=== PATIENT | male | born 1965 | race Caucasian/White ===

== ENCOUNTER 2021-06-07 07:50 | Inpatient (IN) | payer BC ==
[~2021-06-07] VITALS: Ht 195.6 cm; Wt 149.7 kg
[~2021-06-07 07:50] MED LIST: CARISOPRODOL 3350 MG PO; IBUPROFEN 800800 M1 PO; LOMOTIL TABLET1 EACH PO; NOHOMEMEDICATIONS; NORCO 5-325 TA1 EACH PO; SENOKOT-S1 TA1 PO
[2021-06-07 08:00] VITALS: BP 152/85
[2021-06-07 08:11] LABS: URINE BILIRUBIN NEGATIVE (Negative); URINE BLOOD NEGATIVE (Negative); URINE CLARITY CLEAR; URINE COLOR YELLOW; URINE GLUCOSE-RANDOM* NEGATIVE (Negative); URINE KETONES NEGATIVE (Negative); URINE LEUKOCYTES-REFLEX NEGATIVE (Negative); URINE NITRITE-REFLEX NEGATIVE (Negative); URINE PROTEIN (DIPSTICK) NEGATIVE (Negative)
[2021-06-07 08:25] LABS: HEMATOCRIT 43.3 % (42.0-52.0); HEMOGLOBIN 14.6 gm/dL (14.0-18.0); MCH 30.7 pg (26.0-34.0); MCHC 33.7 g/dL (28.0-37.0); MCV 90.9 fL (80.0-100.0); PLATELET COUNT 149 thou/uL (150-400); RBC 4.76 mil/uL (4.50-6.00); RDW 14.7 % (10.5-14.5); WBC 11.2 thou/uL (4.0-11.0)
[2021-06-07 08:29] LABS: CALCIUM 8.9 mg/dL (8.5-10.1); CREATININE 0.8 mg/dL (0.7-1.3)
[2021-06-07 08:40] LABS: ALBUMIN 3.7 g/dL (3.4-5.0); MAGNESIUM 2.1 mg/dL (1.8-2.4); TOTAL BILIRUBIN 2.1 mg/dL (0.2-1.0); TOTAL PROTEIN 7.9 g/dL (6.4-8.2)
[2021-06-07 08:47] LABS: POTASSIUM 4.5 mmol/L (3.5-5.1)
[2021-06-07 10:15] LABS: ABSOLUTE NEUTROPHILS 8.7 thou/uL (1.4-8.2); ATYPICAL LYMPHS 1 %
--- NOTE | 2021-06-07 14:20 | EKG ---
[place] [address] [address] [place] [address] ELECTROCARDIOGRAM REPORT Name: ISRAEL PAL Room #: 150-3 ADM IN M.R.#: [id number] Admission: 06/07/21 Attend Phys: Bhupinder Barba MD Discharge: Date of : 63 Report #: [id number] [facility] ED Test Date: 2021-06-07 Test Time: 08:19:01 Pat Name: ISRAEL PAL Department: Room: 150 Gender: M Vessel Captain: EDUARDO : 1965 Requested By: Wes Hurtado Order Number: [id number] MD: Sundar Ambriz Measurements Intervals [place] Rate: 74 P: 17 [place]: 149 QRS: 14 QRSD: 130 T: 22 QT: 393 QTc: 436 Interpretive Statements Sinus rhythm Right bundle branch block Compared to ECG 04/22/1991 09:12:00 Right bundle-branch block now present Sinus bradycardia no longer present Left ventricular hypertrophy no longer present Electronically Signed On 06-07-2021 14:20:15 CAR ESCORT by Sundar Ambriz [email or web address] <ELECTRONICALLY SIGNED> By: Sundar Ambriz MD, [facility] 06/07/21 1420 8 8 Sundar Ambriz MD, FAC /EPI
[2021-06-07 18:15] VITALS: BP 132/74
[2021-06-07 18:30] VITALS: BP 130/58
[2021-06-07 18:45] VITALS: BP 135/51
--- NOTE | 2021-06-07 19:30 | NUR ---
1600 PT ADMIT TO FLOOR FROM OR. PATIENT IS STABLE CONDITION; LUNGS CLEAR/DIM; HYPOACTIVE BS, 5 LAP SITES INTACT, QUINTON, NO DRAINAGE SEEN, JAYANT DRAIN IN PLACE TO RIGHT ABD WITH MINIMAL BLOODY DRAINAGE IN BULB. SCDS AND O2 IN PLACE, PT DENIES PAIN AT THIS TIME. PT IS AWARE THAT HE IS TO STAY NPO, NOTHING TO EAT OR DRINK UNTIL THE PROVIDER SEES HIM IN THE MORNING, PT IS NOT HAPPY ABOUT IT, BUT UNDERSTANDS. GREEN SWABS AND MOUTH MOISTURIZER GIVEN.
[2021-06-07 19:33] VITALS: BP 135/71
[2021-06-08 03:55] VITALS: BP 142/71
[2021-06-08 05:30] LABS: HEMATOCRIT 39.9 % (42.0-52.0); HEMOGLOBIN 13.5 gm/dL (14.0-18.0); MCHC 33.8 g/dL (28.0-37.0); MCV 91.8 fL (80.0-100.0); RBC 4.35 mil/uL (4.50-6.00); RDW 14.5 % (10.5-14.5)
[2021-06-08 06:18] LABS: ALBUMIN 3.1 g/dL (3.4-5.0); CALCIUM 8.3 mg/dL (8.5-10.1); CREATININE 1.1 mg/dL (0.7-1.3); POTASSIUM 4.1 mmol/L (3.5-5.1); TOTAL BILIRUBIN 8.5 mg/dL (0.2-1.0)
[2021-06-08 07:09] VITALS: BP 127/70
[2021-06-08 07:14] VITALS: BP 144/71
--- NOTE | 2021-06-08 07:49 | EKG ---
[address] [place] [place] [address] ELECTROCARDIOGRAM REPORT Name: ISRAEL PAL Room #: 458-P ADM IN M.R.#: [id number] Admission: 06/07/21 Attend Phys: Bhupinder Barba MD Discharge: Date of : 63 Report #: [id number] [facility] Test Date: 2021-06-07 Test Time: 20:07:22 Pat Name: ISRAEL PAL Department: Room: [facility] Gender: M Staff Software Engineer: FSCHWALBE : 1965 Requested By: Wes Hurtado Order Number: [id number] MD: Sundar Ambriz Measurements Intervals [place] Rate: 71 P: 19 [place]: 160 QRS: 25 QRSD: 137 T: 40 QT: 418 QTc: 455 Interpretive Statements Sinus rhythm Right bundle branch block Compared to ECG 06/07/2021 08:19:01 No significant changes Electronically Signed On 06-08-2021 7:49:31 BAGGAGE HANDLER by Sundar Ambriz [email or web address] <ELECTRONICALLY SIGNED> By: Sundar Abmriz MD, [facility] 06/08/21 0749 06 06 Sundar Ambriz MD, FACC /EPI
--- NOTE | 2021-06-08 08:16 | NUR ---
RECEIVED CARE OF THIS PATIENT AT 1900. PATIENT ALERT AND ORIENTED X4. UP WITH SBA AND WALKER. HAS 5 SMALL INCISIONS ON ABD WITH DERMABOND. IV IN L HAND WITH FLUIDS INFUSING. C/O PAIN, MED GIVEN. SLEPT OFF AND ON DURING NIGHT.
[2021-06-08 09:08] LABS: HAV IgM AB (ANTI-HAV IgM) Negative (Negative); HEPATITIS B SURFACE AG Negative (Negative)
[2021-06-08 15:53] VITALS: BP 133/79
--- NOTE | 2021-06-08 17:13 | NUR ---
PT RESTING COMFORTABLY. WENT TO GI LAB FOR ERCP PROCEDURE. PT STILL HAS 5 LAP SITES WITH 1 JAYANT DRAIN OFF OF RLQ WITH SEROSANGENOUS DRAINAGE. PT AFEBRILE, ADEQUATE UOP, NO BM, FAIR APPETITE. PT BECOMING MORE JAUNDICE THIS AFTERNOON. PLAN IS TO DO SERIAL LAB WORK AND POSSIBLY TRANSFER TO DIFFERENT FACILITY FOR PROCEDURE. PT AND AT BEDSIDE HAVE BEEN THOUROUGHLY UPDATED AND EDUCATED ON PT CONDITION AND POC. PT SLOWLY PROGRESSING TOWRADS POC.
[2021-06-08 20:12] VITALS: BP 124/65
[2021-06-09 06:00] LABS: HEMATOCRIT 37.1 % (42.0-52.0); HEMOGLOBIN 12.6 gm/dL (14.0-18.0); MCH 31.1 pg (26.0-34.0); MCHC 33.9 g/dL (28.0-37.0); MCV 91.9 fL (80.0-100.0); RBC 4.04 mil/uL (4.50-6.00); RDW 15.2 % (10.5-14.5)
[2021-06-09 06:25] LABS: ALBUMIN 2.9 g/dL (3.4-5.0); CALCIUM 8.1 mg/dL (8.5-10.1); CREATININE 0.9 mg/dL (0.7-1.3); MAGNESIUM 2.4 mg/dL (1.8-2.4); POTASSIUM 4.1 mmol/L (3.5-5.1); TOTAL BILIRUBIN 4.5 mg/dL (0.2-1.0); TOTAL PROTEIN 6.2 g/dL (6.4-8.2)
[2021-06-09 07:00] VITALS: BP 137/83
--- NOTE | 2021-06-09 07:55 | NUR ---
ASSUMED CARE OF PT AT 1900. PT ASSESSED TO BE AOX4 55M PRESENTING WITH CHOLECYSTITIS AND LIVER BLOCK. THROUGHOUT THE NIGHT PT RESTED QUIETLY IN ROOM WITH NO COMPLAINTS, VSS. PT ABLE TO AMBULATE TO THE BATHROOM SBA WITH A WALKER, STEADY. USES HOME CPAP AT NIGHT. NO PAIN THROUGHOUT THE NIGHT, JAYANT HAD 35 OUT, FLUSHED WITH 5 ML NS. HOPING LIVER LABS OK IN AM SO HE CAN FOLLOW UP OUTPT, OTHERWISE WILL XFER TODAY FOR REPEAT PROCEDURE.
--- NOTE | 2021-06-09 08:00 | NUR ---
PT WANTING TO KNOW IF HE IS LEAVING TODAY. PT DENIES ANY PAIN OR N/V. PT INCISIONS TO ABD ARE HEALING. PT HAS BOWEL SOUNDS. PT TOLERATING DIET.
--- NOTE | 2021-06-09 10:30 | NUR ---
GI NURSE CAME TO ROOM AND STATED SHE IS WORKING ON HIS D/C TO HOME AND TO FOLLOW UP WITH GI. PT AT BEDSIDE AND WANTING TO KNOW WHEN HE CAN LEAVE TODAY. PT UP WITH WALKER IN ROOM WITH STEADY GAIT.
[2021-06-09 11:00] VITALS: BP 137/83
[2021-06-09 11:33] VITALS: BP 137/83
--- NOTE | 2021-06-09 12:19 | NUR ---
PT SIGNED D/C INSTRUCTIONS AT THIS TIME. PT DIDN'T KNOW IF HE IS GETTING AN ABX AFTER DISCHARGE. CALLING DR. CERVANTES AT THIS TIME FOR CLARIFICATION.
--- NOTE | 2021-06-09 12:30 | NUR ---
PT VERBALY UNDERSTOOD D/C ORDERS. PT LEFT VIA AMBULATION WITH TO CAR. PT HAS STEADY GAIT. PT UNDERSTANDS HOW TO MANAGE JAYANT DRAIN, PT GIVEN AN NEW MEASURING CUP TO MEASURE JAYANT CONTENTS. ABX IS SENT TO PHARMACY PER DR. GEIGER.
--- NOTE | 2021-06-09 12:30 | NUR ---
BILLY CALLED BACK AND STATED PT WILL GO HOME WITH JAYANT DRAIN AND HE ALSO NEEDED AN ABX TO D/C HOME WITH. CALLING DR. GEIGER AT THIS TIME.
[2021-06-09] MEDS ORDERED: AUGMENTIN 875-1 EACH PO (12:34)
--- NOTE | 2021-06-09 14:52 | P ---
[facility] [place] [address] PROCEDURE REPORT Name: ISRAEL PAL Room #: 458-P [facility] IN M.R.#: [id number] Admission: 06/07/21 Attend Phys: Bhupinder Barba MD Discharge: 06/09/21 Date of : 63 Report #: [id number] THIS REPORT FOR: cc: Marsha Hartley MD, Paula V. MD McElhinney, Christian C. MD ~ cc: Carl Babcock MD, Radha Pemberton MD DATE OF SERVICE: 06/08/2021 PROCEDURE PERFORMED: Attempted ERCP. HISTORY OF PRESENT ILLNESS: The patient is a 55-year-old male with a history of midepigastric right upper quadrant abdominal pain, was noted to have elevated liver function test on admission with a bilirubin of 2.1. Ultrasound of the abdomen showed changes consistent with acute cholecystitis, diffuse hepatic steatosis and splenomegaly. CT scan of the abdomen and pelvis, distended gallbladder with mural thickening and surrounding inflammation concerning for acute cholecystitis. No evidence of biliary obstruction. The patient underwent laparoscopic cholecystectomy with intraoperative cholangiogram. However, even though no filling defects were noted, the contrast did not pass into the duodenum and this was despite glucagon in several attempts of cholangiogram. Repeated his liver function tests today and his bilirubin jumped to 8.5; his AST is 107, ALT 186, alkaline phosphatase 124. The patient is having mild abdominal pain today. No fevers. Lipase was elevated at 1558. Because of his cholangiogram findings and jumping bilirubin, I would recommend proceeding with an ERCP for further evaluation. DESCRIPTION OF PROCEDURE: The risks and benefits of the procedure were explained to the patient, those risks including but not limited to bleeding, perforation and the risk of sedation as well as the potential risk for post-ERCP pancreatitis. He understood these risks and gave informed consent. The procedure was performed in the operating room under general anesthesia. The patient is already on IV scheduled Zosyn q. 8 hours at this point, 50 mg indomethacin rectal suppository was given prior to the procedure as well. Next, using a standard Olympus side-viewing ERCP scope, the scope was placed in the patient's mouth and advanced under direct vision through the esophagus, stomach and into the second portion of the duodenum. 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 The major papilla was on the inferior aspect of the diverticulum. I tried multiple times, initially with a Mykel-Cook 0.025 sphincterotome catheter to cannulate the common bile duct, which was unsuccessful. I used both the short and long technique, tried advancing the wire, the tip of the catheter would sit within the papilla; however, because it was on the lip of the diverticulum. Each time I would try to advance or move and adjust the catheter with or without elevation, this would not advance into the common bile duct and slip off the lip. We tried rotating [facility] [address] [place] [address] PROCEDURE REPORT Name: KAESIRAELJO VICENTE Room #: 458-P [facility] IN M.R.#: [id number] Admission: 06/07/21 Attend Phys: Bhupinder Barba MD Discharge: 06/09/21 Date of : 63 Report #: [id number] the patient several different times. I then tried a different size Mykel-Cook smaller 0.021 catheter without any success. After approximately an hour and a half of attempting multiple different ways, I was still not successful. At this point, the scope was then withdrawn and the procedure terminated. The patient tolerated the procedure well. IMPRESSION: Unsuccessful endoscopic retrograde cholangiopancreatography due to the major papilla being on the edge of a diverticulum and even though multiple attempts were made as described above I was not successful in ever cannulating the common bile duct. RECOMMENDATIONS: 1. Observe the patient post-procedure. 2. Options include having Dr. Espino or Dr. Bauer in the near future to attempt ERCP. 3. Could consider percutaneous approach through IR and using a rendezvous technique, reattempt ERCP in the future. We will discuss these options with Dr. Babcock and the patient. Thank you for allowing me to participate in his care. <ELECTRONICALLY SIGNED> By: Angelo Nguyen MD 06/09/21 1452 1341 16 Angelo Nguyen MD /nt
[2021-06-09 14:58] LABS: HEPATITIS C VIRUS AB <0.1
--- NOTE | 2021-06-09 17:06 | PATH ---
[facility] [place] [address] PATHOLOGY RPT PROCEDURE Name: ISRAEL PAL Room #: 458-P [facility] IN M.R.#: [id number] Admission: 06/07/21 Date of : 63 Discharge: 06/09/21 Report #: [id number] Path Case #: [id number] [facility] Accession Number: [id number] . 01 Material submitted: . gallbladder - GALLBLADDER . 01 Clinical history: . LAPAROSCOPIC CHOLECYSTECTOMY W/GRAM ACUTE CHOLECYSTITIS . 01 Diagnosis: Gallbladder "gallbladder", cholecystectomy: - Acute and subacute cholecystitis arising in the background of chronic cholecystitis with cholelithiasis. (SHA:pit; 06/09/2021) QTP 06/09/2021 1142 Local . 01 Electronically signed: . Joe Price MD, Pathologist NPI- [id number] . 01 Gross description: . Fixative: Formalin Labeled: Gallbladder Specimen received: Previously disrupted gallbladder Dimensions: 8.0 x 5.0 x 2.3 cm Serosa: Red-brown to pale reyes and smooth to roughened Lymph node: Not identified Mucosa: Red-brown, velvety with moderate cholelithiasis Average wall thickness: Up to 0.6 cm Calculi: Present displaying a dark black, multifaceted appearance Abnormalities: None identified . A1- Epic Prelude Analyst body, fundus, and the cystic duct margin. ([facility]; 06/08/2021) NRI/NRI 06/08/2021 1442 Local . 01 Pathologist provided ICD-10: K80.12 . 01 CPT . 397358 Specimen Comment: A courtesy copy of this report has been sent to [phone] Specimen Comment: [phone], Specimen Comment: Report sent to , DR DEE / [place] [address] PATHOLOGY RPT PROCEDURE Name: ISRAEL PAL Room #: 458-P [facility] IN M.R.#: [id number] Admission: 06/07/21 Date of : 63 Discharge: 06/09/21 Report #: [id number] Path Case #: [id number] Performed at: 01 [facility] [place] [address], [place], [place] [id number] MD Joe Price MD Phone: [phone]
== END 2021-06-09 12:30 | disposition home or self-care (01) | DRG 417 ==
LOC: ER 07:50 → EROBS 09:43 → 4W 09:43 → TBA 14:13 → 4W 18:05
PROVIDERS: Emergency Medicine; Hospitalist; Surgery; ADMIT Hospitalist; ATTEND Hospitalist
PROC: 0FT44ZZ Resection of Gallbladder, Percutaneous Endoscopic Approach (ICD-10-PCS; principal; 2021-06-07)
PROC: BF101ZZ Fluoroscopy of Bile Ducts using Low Osmolar Contrast (ICD-10-PCS; principal; 2021-06-07)
PROC: 0DJ08ZZ Inspection of Upper Intestinal Tract, Via Natural or Artificial Opening Endoscopic (ICD-10-PCS; 2021-06-08)
PROC: 5A09457 Assistance with Respiratory Ventilation, 24-96 Consecutive Hours, Continuous Positive Airway Pressure (ICD-10-PCS; 2021-06-08)
DX: K81.0 Acute cholecystitis (principal); K83.1 Obstruction of bile duct; K85.90 Acute pancreatitis without necrosis or infection, unspecified; E66.01 Morbid (severe) obesity due to excess calories; K76.0 Fatty (change of) liver, not elsewhere classified; K82.8 Other specified diseases of gallbladder; F17.290 Nicotine dependence, other tobacco product, uncomplicated; K57.50 Diverticulosis of both small and large intestine without perforation or abscess without bleeding; K21.9 Gastro-esophageal reflux disease without esophagitis; R16.1 Splenomegaly, not elsewhere classified; Z20.822 Contact with and (suspected) exposure to COVID-19; Z86.16 Personal history of COVID-19; Z79.899 Other long term (current) drug therapy; Z68.39 Body mass index [BMI] 39.0-39.9, adult; Z88.1 Allergy status to other antibiotic agents; Z91.013 Allergy to seafood; Z80.9 Family history of malignant neoplasm, unspecified; Z83.3 Family history of diabetes mellitus; Z82.49 Family history of ischemic heart disease and other diseases of the circulatory system
CPT/HCPCS: 10047; 50010; 50101; 50331; 50411; 50555; 51489; 52265; 52266; 53307; 53310; 53312; 54022; 54118; 55245; 56462; 56525; 56526; 56674; 58574; 58910; 62110; 62900; 70005

== ENCOUNTER 2021-07-02 11:51 | Emergency (ER) | payer BC ==
[~2021-07-02] VITALS: Ht 195.6 cm; Wt 138.3 kg
[~2021-07-02 11:51] MED LIST changes: +AUGMENTIN 875-1 EACH PO
[2021-07-02 12:28] LABS: HEMOGLOBIN 14.1 gm/dL (14.0-18.0); MCHC 34.5 g/dL (28.0-37.0); MCV 89.9 fL (80.0-100.0); RBC 4.55 mil/uL (4.50-6.00); WBC 7.5 thou/uL (4.0-11.0)
[2021-07-02 12:38] LABS: CALCIUM 9.4 mg/dL (8.5-10.1)
[2021-07-02 12:48] LABS: ALBUMIN 3.5 g/dL (3.4-5.0); TOTAL BILIRUBIN 1.1 mg/dL (0.2-1.0); TOTAL PROTEIN 8.2 g/dL (6.4-8.2)
--- NOTE | 2021-07-02 14:22 | EKG ---
[address] [address] ELECTROCARDIOGRAM REPORT Name: ISRAEL PAL [id number] Admission: 07/02/21 Attend Phys: Discharge: Date of : 63 Report #: [id number] [facility] ED Test Date: 2021-07-02 Test Time: 11:48:33 Pat Name: ISRAEL PAL Department: Room: Gender: M It Sales Consultant: SUMI : 1965 Requested By: Shari Fernando Order Number: [id number] MD: Edwin Mcgregor Measurements Intervals [place] Rate: 72 P: 20 [place]: 155 QRS: 23 QRSD: 123 T: 24 QT: 391 QTc: 428 Interpretive Statements Sinus rhythm Right bundle branch block Compared to ECG 06/07/2021 20:07:22 No significant changes Electronically Signed On 07-02-2021 14:22:26 LOSS PREVENTION GUARD by Edwin Mcgregor [email or web address] <ELECTRONICALLY SIGNED> By: Edwin Mcgregor MD 07/02/21 1422 1148 1148 Edwin Mcgregor MD /EPI
[2021-07-02 17:40] VITALS: BP 140/84
== END 2021-07-02 17:41 | disposition home or self-care (01) ==
LOC: ER 11:51
PROVIDERS: Nurse Practitioner Family
DX: K20.90 Esophagitis, unspecified without bleeding (principal); Z20.822 Contact with and (suspected) exposure to COVID-19; R06.00 Dyspnea, unspecified; Z88.8 Allergy status to other drugs, medicaments and biological substances

== ENCOUNTER → 2021-07-28 | Outpatient (CLI) | payer BC ==
[~2021-07-28] VITALS: Ht 195.6 cm; Wt 145.2 kg
[~2021-07-28] MED LIST changes: +CARAFATE 1 GM TA1 GM PO; +PROTONIX40 M2 PO
--- NOTE | 2021-07-30 08:54 | P ---
[facility] [place] [address] PROCEDURE REPORT Name: ISRAEL PAL Room #: REG BRITNEY Zhou#: [id number] Admission: 07/28/21 Attend Phys: Angelo Wright Discharge: Date of : 63 Report #: [id number] THIS REPORT FOR: cc: Marsha Hartley MD,Angelo Bloom MD, MD ~ cc: Marsha Hartley MD DATE OF SERVICE: 07/28/2021 PROCEDURE PERFORMED: Upper endoscopy with biliary stent removal and biopsies. HISTORY OF PRESENT ILLNESS: The patient is a 55-year-old male who underwent an attempted ERCP by myself on 06/08/2021. I was unsuccessful due to a large duodenal diverticulum. He therefore had an ERCP performed by Dr. Monzon on 06/23/2021. Sphincterotomy was performed. A stone was removed and a plastic stent was placed. He is here for removal of the stent today. He denies any symptoms. He was diagnosed with esophagitis and was placed on PPI therapy. He denies any dysphagia. DESCRIPTION OF PROCEDURE: The risks and benefits of the procedure were explained to the patient, those risks including but not limited to bleeding, perforation and the risk of sedation. He understood these risks and gave informed consent. Sedation was given using propofol per anesthesia. Next, using a standard Olympus upper endoscope, the scope was placed in the patient's mouth and advanced under direct vision through the esophagus, stomach and into the second portion of the duodenum. The upper and mid esophagus was normal in appearance. In the distal esophagus, a possible short segment of Llanes's esophagus was noted. Biopsies were obtained. No evidence of esophagitis. Upon entering the stomach, a small hiatal hernia was noted. Overall, the gastric mucosa was normal. The pylorus was normal and patent. The duodenal bulb, first portion were normal. In the second portion of the duodenum, a biliary stent was then placed, good bile drainage was noted, also again noted was a diverticulum. The stent was grasped with a snare and this was removed with endoscope without difficulty. The scope was then withdrawn and the procedure terminated. The patient tolerated the procedure well. IMPRESSION: 1. 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 2. Small hiatal hernia. 3. Status post biliary stent removal. RECOMMENDATIONS: 1. Await biopsy results. 2. Continue PPI therapy. [address] [address] PROCEDURE REPORT Name: ISRAEL PAL Room #: REG BRITNEY Abelardo#: [id number] Admission: 07/28/21 Attend Phys: Angelo Wright Discharge: Date of : 63 Report #: [id number] Thank you for allowing me to participate in his care. <ELECTRONICALLY SIGNED> By: Angelo Nguyen MD 07/30/21 0854 1206 42 Angelo Nguyen MD /araceli
--- NOTE | 2021-07-30 19:07 | PATH ---
[facility] [address] [place] [address] PATHOLOGY RPT PROCEDURE Name: KAEKAMERON CINTHIA Room #: REG CLMayco Solis.#: [id number] Admission: 07/28/21 Date of : 63 Discharge: Report #: [id number] Path Case #: [id number] [facility] Accession Number: [id number] . 01 Material submitted: . esophagus - DISTAL ESOPHAGUS R/O TEMPLE'S BIOPSY. Modifiers: distal . 01 Clinical history: . ESOPHAGOGASTRODUODENOSCOPY STENT REMOVAL, ABDOMINAL PAIN GASTRIC ESOPHAGEAL REFLUX . 02 Diagnosis: Esophagus "distal", biopsy: - Esophageal squamous and gastric cardia mucosa with features of reflux esophagitis and focal intestinal metaplasia (Temple's esophagus). - Negative for dysplasia and malignancy. (DEAN:ginny; 07/30/2021) QMS 07/30/2021 1804 Local . 02 Electronically signed: . Vincent Merlos MD, Pathologist NPI- [id number] . 01 Gross description: . Received in formalin labeled "Kameron Pal, distal esophagus rule out Temple's" are 2 fragments of reyes-brown soft tissue measuring in aggregate 0.5 x 0.2 x 0.1 cm. The specimen is submitted entirely in A1. ([facility]; 07/29/2021) [facility] 07/29/2021 1057 Local . 02 Pathologist provided ICD-10: R10.9, K21.9 . 02 CPT . 592602 Specimen Comment: A courtesy copy of this report has been sent to [phone] Specimen Comment: [phone] Specimen Comment: Report sent to / DR DEE Performed at: [address] [id number] MD Joe Price MD Phone: [phone] Performed at: [address] [id number] [place] [address] PATHOLOGY RPT PROCEDURE Name: KAMERON PAL CINTHIA Room #: HARIS Zhou#: [id number] Admission: 07/28/21 Date of : 63 Discharge: Report #: [id number] Path Case #: [id number] MD Arnaldo Godinez MD Phone: [phone]
== END | disposition home or self-care (01) ==
LOC: GI 11:01
PROVIDERS: ATTEND Specialist
DX: R10.9 Unspecified abdominal pain (principal); K22.70 Barrett's esophagus without dysplasia; K21.00 Gastro-esophageal reflux disease with esophagitis, without bleeding; F17.210 Nicotine dependence, cigarettes, uncomplicated; Z98.890 Other specified postprocedural states; Z79.899 Other long term (current) drug therapy; Z20.822 Contact with and (suspected) exposure to COVID-19; Z90.49 Acquired absence of other specified parts of digestive tract; Z46.59 Encounter for fitting and adjustment of other gastrointestinal appliance and device; Z88.8 Allergy status to other drugs, medicaments and biological substances
CPT/HCPCS: 62110; 62900